=== PATIENT | female | born 1955 | race Caucasian/White ===

== ENCOUNTER 2020-04-03 08:08 | Emergency (ER) | payer OTHER, SELFPAY ==
--- NOTE | ~2020-04-03 | CT_ITS ---
EXAMINATION: CT HEAD WITHOUT CONTRAST CLINICAL INFORMATION: Status post fall with laceration above the left ear, on Eliquis, rule out intracranial abnormality. COMPARISON: None TECHNIQUE: Contiguous axial imaging was performed from the skull base to vertex without intravenous administration of contrast. Coronal and sagittal reformatted images were obtained. This CT examination was performed using dose optimization techniques as appropriate, variously including the following: *Automated exposure control *Adjustment of mA and/or kV according to patient size (this includes techniques or standardized protocols for targeted exams where dose is matched to indication/reason for exam; i.e. extremities or head) *Use of iterative reconstruction technique DLP: 756 mGy-cm FINDINGS: There is no evidence of acute intracranial hemorrhage or territorial infarction. No abnormal mass effect or midline shift is seen. Stein to white matter differentiation is well preserved. No extra-axial fluid collections are identified. The ventricles are normal in size. There is no abnormal attenuation within the brain parenchyma. The osseous structures and soft tissues are normal. Partial visualization of a small retention cyst versus inflammatory polyp at the base of the left maxillary sinus. The remainder the paranasal sinuses are clear. The mastoid air cells are clear. A coarsely calcified subcutaneous nodule in the right posterior parietal soft tissues measures 1.3 cm (image 72, series 2). CT/CT head/brain wo con IMPRESSION: No acute intracranial pathology.
[2020-04-03 09:02] VITALS: BP 153/75; PULSE 78; RESP 16; TEMP 36.6; O2SAT 98; BMI 31.9
[2020-04-03] MEDS: Lidocaine HCl 1 % MPF 5 ML VIAL SUBCUT (09:50)
--- NOTE | 2020-04-03 10:47 | ED_ITS ---
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 States history of atrial fibrillation she is chronically anticoagulated on Eliquis. She reports she was fixing the window turned around with a box on the floor she tripped on it causing her to fall on the left side resulting a laceration to left of the skull. She denies any LOC. States minimal ache at the side laceration otherwise no neck or torso injury. Denies any other injuries. Onset (ago): minute(s) Fall witnessed: yes, by family Place fall occurred: home Prolonged down time: no Symptoms prior to fall: none Context: tripped/slipped Location of injury: head Related Data Allergies Allergy/AdvReac Type Severity Reaction Status Date / Time Penicillins [PENICILLINS] Allergy Unknown HIVES Unverified 11/12/19 15:57 Review of Systems Review of Systems: Constitutional: No Weight loss, No Fever, No Chills, No Night Sweats, No Fatigue, No Malaise ENT/Mouth: No Hearing loss, No Ear Pain, No Nasal Congestion, No Sinus Pain, No Hoarseness, No sore throat, No Rhinorrhea, No Swallowing Difficulty Eyes: No Eye Pain, No Swelling, No Redness, No Foreign Body, No Discharge, No Vision Changes Cardiovascular: No Chest Pain, No SOB, No Dyspnea on Exertion, No Orthopnea, No Edema, No Palpitations Respiratory: No Cough, No Sputum, No Wheezing, No Dyspnea Gastrointestinal: No Nausea, No Vomiting, No Diarrhea, No Constipation, No abdominal Pain Genitourinary: No Urinary Frequency, No Hematuria, No Urinary Incontinence, No Urgency, No Flank Pain, No Urinary Flow Changes, No Hesitancy Musculoskeletal: No joint pain, No Myalgias, No Joint Swelling Skin: No Skin Lesions, No rash Neuro: No Weakness, No Numbness, No Paresthesias, No Loss of Consciousness, No Dizziness, No Headache Psych: No Social Issues Heme/Lymph: No Bruising, No Bleeding,No Lymphadenopathy Endocrine: No Polyuria, No Polydipsia, No Temperature Intolerance Yes all other systems are reviewed and are negative [facility] Social History Social History Alcohol intake: current Alcohol intake frequency: a few times a month Alcohol type: wine Smoking Status: Former smoker Smoked in Last 30 Days: No Use of substances other than those prescribed or required for medical reasons: Yes Substance Use Type: Marijuana Substance Use Frequency: Occasionally Any prior treatment program specific to substance use: No Advance Directives: No Advance Directives Information Provided: No Physical Exam Vital Signs: Vital Signs: Last Vital Signs Temp 97.8 F 04/03/20 09:02 Pulse 78 04/03/20 09:02 Resp 16 04/03/20 09:02 BP 153/75 H 04/03/20 09:02 Pulse Ox 98 04/03/20 09:02 Body Mass Index 31.9 Reviewed Const: General: cooperative and healthy appearing; No acute distress or intoxicated appearing Nutritional Appearance: average body habitus Orientation/consciousness: patient oriented x3 HENMT: Head: Yes normal to inspection Head images: 1. 4 cm linear laceration Ears: hearing grossly normal bilaterally Eyes: General: appearance normal, both eyes and all related structures Visual Kowalski: normal visual kowalski by confrontation Neck: Neck: Yes normal visual inspection, No positive Brudzinski's sign, No positive Kernig's sign and No tender Thyroid: Thyroid normal Chest: Chest palpation & inspection: normal inspection of the chest Resp: Effort & Inspection: normal respiratory effort Cardio: Jugular venous distension: no JVD Rhythm: regular rhythm Heart sounds: S1 normal heart sound present and S2 normal heart sound present GI: Inspection: Yes normal to inspection Percussion: Yes normal to percussion Auscultation: normal bowel sounds : General: Yes no CVA tenderness Back/Spine/Pelvis: Back: no CVA tenderness Skin: General skin exam: no rashes or lesions noted Neuro: General: patient oriented x3 Extrem: General: Yes normal to inspection NIH Stroke Scale Internal: Initial- Upon Arrival Level of Consciousness: Alert Level of Consciousness Questions: Answers both questions correctly Level of Consciousness Commands: Performs both tasks correctly Best Gaze: Normal Visual: No visual loss Facial Palsy: Normal Motor Arm (Right): No drift Motor Arm (Left): No drift Motor Leg (Right): No drift Motor Leg (Left): No drift Limb Ataxia: Absent Sensory: Normal Best Language: No aphasia Dysarthia: Normal Extinction and Inattention: No abnormality Score: 0 Course Course Course Narrative: In review of 62-year-old female with history of atrial fibrillation chronically anticoagulated on Eliquis presenting with trip and fall resulting laceration to left side scalp requiring 3 petar for repair with negative head CT. Clinically stable no complaints of pain or discomfort. Ambulatory steady gait. Given that she is on Eliquis risk of delayed bleeding review with her clear return follow-up precautions provided. 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 Home care instructions provided. Stable for discharge. Procedures Laceration Laceration 1: Site: scalp Side (If applicable): right Size (cm): 4 Description: linear Depth: simple, single layer Local Anesthetic: lidocaine 1% Amount of anesthesia used (mL): 5 Pre-repair: wound explored Technique: other (3 petar) Technique: simple interrupted Discharge Plan Discharge Clinical Impression: Laceration of scalp, Fall, Anticoagulant effect Patient Disposition: Home, Self-Care Instructions: Staple Care (ED), Fall Prevention (ED), Blood Thinners (ED) Additional Instructions: The CT scan of the head did not show any evidence of acute skull fracture or bleed There is a risk of delayed bleeding with Eliquis Return to the emergency room right away if you experience worsening headache, fever, vision changes, dizziness or any new symptoms The laceration on the left side of the scalp was repaired with 3 petar These will need to be removed in 10 days Keep site clean and dry Can shower after 48 hours but do not submerge her head under water Return if any concerns or worsening symptoms Thank you Referrals: Jaida Buchanan NP [Primary Care Provider] - 10 days (Staple removal) Interventions: ED Discharge Assessment Last Done: 04/03/20 11:07 Discharge Date/Time: 04/03/20 11:11
== END 2020-04-03 11:11 | disposition home or self-care (01) ==
PROVIDERS: Emergency Provider Emergency Medicine; PCP Nurse Practitioner Family
DX: S01.01XA Laceration without foreign body of scalp, initial encounter (principal); W18.09XA Striking against other object with subsequent fall, initial encounter; I48.91 Unspecified atrial fibrillation; Y93.89 Activity, other specified; Y92.019 Unspecified place in single-family (private) house as the place of occurrence of the external cause; Y99.9 Unspecified external cause status; Z79.01 Long term (current) use of anticoagulants; Z87.891 Personal history of nicotine dependence
CPT/HCPCS: 12002; 70450; 99284